=== PATIENT | female | born 1955 | race Caucasian/White ===

== ENCOUNTER 2016-07-30 12:25 | Emergency (ER) | payer OTHER ==
[~2016-07-30] VITALS: Ht 165.1 cm; Wt 68.0 kg
[~2016-07-30 12:25] MED LIST: ASPIRIN EC81 M1 PO; CHANTIX1 EACH; FLUOXETINE HCL20 M2; LANSOPRAZOLE30 M2 PO; LEVSIN0.125 M1 PO; LORAZEPAM2 M1 PO; NORCO 5-325 TA1 EACH PO; OLANZAPINE5 M2; OXYCODONE HCL30 M1 PO; PRAVASTATIN SOD40 M2 PO
--- NOTE | 2016-07-30 13:10 | ED GENERAL ADULT ---
History of Present Illness General Chief Complaint: Fall Stated Complaint: PER PT TRIPPED OVER DOG,NECK PAIN,FACE LAC Vital Signs & Intake/Output Vital Signs & Intake/Output Vital Signs Date Time Temp Pulse Resp B/P Pulse O2 O2 Flow FiO2 Ox Delivery Rate 07/30 1236 99.7 88 18 139/97 97 Room Air Allergies Coded Allergies: codeine (PANIC ATTACKS, ANXIETY 11/08/15) Reconcile Medications Aspirin (Ecotrin*) 81 MG TABLET.DR 4 TAB PO ONCE BACK WENT OUT (Reported) Fluoxetine HCl (Unknown Strength) CAPSULE (Unknown Dose) UNKNOWN (Reported) Hydrocodone/Acetaminophen ([place] 5-325 Tablet) 1 EACH TABLET 1-2 TAB PO Q6P PRN PAIN Hyoscyamine (Levsin) 0.125 MG TABLET 1-2 TAB PO Q6P PRN bladder spasms Lansoprazole 30 MG CAPSULE.DR 1 CAP PO DAILY GI (Reported) Lorazepam 2 MG TABLET 1 TAB PO TID PRN ANXIETY (Reported) Olanzapine (Unknown Strength) TABLET (Unknown Dose) UNKNOWN (Reported) Oxycodone HCl 30 MG TABLET 1 TAB PO 4XDP PRN PAIN (Reported) Pravastatin Sodium 40 MG TABLET 1 TAB PO DAILY CHOLESTEROL (Reported) Varenicline Tartrate (Chantix) (Unknown Strength) TAB.DS.PK (Unknown Dose) UNKNOWN (Reported) Triage Note: PT FELL LAST NIGHT AND HAS NECK AND FACE PAIN. NO RELIEF OF PAIN WITH ADVIL. PT HAS HAD NECK SURGERY "I'M CONCERNED ABOUT MY NECK" PT HAS LIMITED ROM TO NECK. PT TOOK ROXICODONE PRIOR TO ARRIVAL Past History Travel History Traveled to [place] past 21 day No Medical History Neurological: NONE EENT: NONE Cardiovascular: NONE Respiratory: NONE Gastrointestinal: NONE Hepatic: NONE Renal: NONE Musculoskeletal: CHRONIC NECK PAIN Psychiatric: anxiety Endocrine: NONE Blood Disorders: NONE Cancer(s): NONE Surgical History Surgical History: non-contributory Psychosocial History Who do you live with Spouse What is your primary language Greenlandic Departure Departure Condition: Stable Referrals: EMILIE LOGAN MD (PCP/Family) Departure Forms: Customer Survey General Discharge Information
--- NOTE | 2016-07-30 13:10 | ED HEAD/FACIAL INJ COMPLAINT ---
History of Present Illness General Chief Complaint: Fall Stated Complaint: PER PT TRIPPED OVER DOG,NECK PAIN,FACE LAC Source: patient, old records (q) Exam Limitations: no limitations Vital Signs & Intake/Output Vital Signs & Intake/Output Vital Signs Date Time Temp Pulse Resp B/P Pulse O2 O2 Flow FiO2 Ox Delivery Rate 07/30 1526 98.6 76 18 126/84 98 Room Air 07/30 1236 99.7 88 18 139/97 97 Room Air Allergies Coded Allergies: codeine (PANIC ATTACKS, ANXIETY 11/08/15) Reconcile Medications Fluoxetine HCl (Unknown Strength) CAPSULE (Unknown Dose) UNKNOWN (Reported) Lansoprazole 30 MG CAPSULE.DR 1 CAP PO DAILY GI (Reported) Olanzapine (Unknown Strength) TABLET (Unknown Dose) UNKNOWN (Reported) Pravastatin Sodium 40 MG TABLET 1 TAB PO DAILY CHOLESTEROL (Reported) Triage Note: PT FELL LAST NIGHT AND HAS NECK AND FACE PAIN. NO RELIEF OF PAIN WITH ADVIL. PT HAS HAD NECK SURGERY "I'M CONCERNED ABOUT MY NECK" PT HAS LIMITED ROM TO NECK. PT TOOK ROXICODONE PRIOR TO ARRIVAL Triage Nurses Notes Reviewed? yes Onset: Abrupt Severity: moderate Severity Numbers: 6 Location: frontal Method of Injury: fall Loss of Consciousness: dazed Associated Symptoms: neck pain HPI: 61-year-old female with history of chronic neck pain status post fusion for which she takes Roxicodone presents emergency room after she states she tripped over her dog last night hitting her face against the curb. The patient is unsure of LOC however states she has felt dazed since associated with a generalized headache and neck pain.. Patient denies any nausea or vomiting. She took one of her medications earlier today with only mild improvement of her mild aching pain nonradiating. No vision changes dental trauma epistaxis. She denies any back arm or leg pain No modifying factors or associated symptoms otherwise (AILYN RAWLS) Past History Travel History Traveled to [place] past 21 day No Medical History Any Pertinent Medical History? see below for history Neurological: NONE EENT: NONE Cardiovascular: NONE Respiratory: NONE Gastrointestinal: NONE Hepatic: NONE Renal: NONE Musculoskeletal: CHRONIC NECK PAIN Psychiatric: anxiety Endocrine: NONE Blood Disorders: NONE Cancer(s): NONE Surgical History Surgical History: non-contributory Psychosocial History Who do you live with Spouse What is your primary language Yi Family History Hx Contributory? No (AILYN RAWLS) Review of Systems Review of Systems Constitutional: Reports: see HPI. All Other Systems: Reviewed and Negative Comments Review of systems: See HPI, All other systems negative. Constitutional, no chills no fever, no malaise HEENT: No visual changes no sore throat no congestion, no ear pain Cardiovascular: No chest pain , no palpitation Skin, no rashes, no change in skin Respiratory: No dyspnea no cough no sputum GI: No nausea no vomiting, no diarrhea, Muscle skeletal: No joint pain, no joint swelling, back pain, neck pain, Neurologic: No numbness no confusion, headache Psych: No stress Heme/endocrine: No bruising no bleeding Immunology: No lymphadenopathy, (AILYN RAWLS) Physical Exam Physical Exam General Appearance: well developed/nourished, no apparent distress, alert, awake Cranial Nerves: normal hearing, normal speech, PERRL Comments: Well-developed well-nourished person in no acute distress HEENT: Normal EENT exam; PERRL, EOMI, no nystagmus. HEAD is atraumatic. moist mucous membranes. Superficial abrasion noted over the nasal bridge no laceration no dry blood no epistaxes no dental trauma Neck: Supple, bilateral paracervical muscle tenderness to palpation normal range of motion without pain or tenderness no ecchymosis or signs of trauma Back: Nontender, Full range of motion Cardiovascular: Regular rate and rhythms no murmurs rubs Respiratory: No respiratory distress. Patient speaking in full complete sentences. Breath sounds clear to auscultation bilaterally: NO W/R/R Abdomen: Soft, nontender Extremity: No edema, full range of motion of extremities, normal and equal pulses bilaterally, 5 out of 5 strength noted to bilateral upper and lower extremities Neuro: Alert oriented x3, motor sensory normal, cranial nerves II through XII grossly intact. There were no obvious focal neurologic abnormalities. Skin: No appreciable rash on exposed skin, skin is warm and dry. Psych: Mood and affect is normal, memory and judgment is normal. (AILYN RAWLS) Progress Differential Diagnosis: c-spine injury, facial fracture, globe injury, ICH, orbit fracture, skull fracture Plan of Care: Orders Procedure Date/time Status CT HEAD WO IV CONTRAST 07/[address] MAXILLOFACIAL W/O CON 07/[address] CERV SPINE WO IV CONTRAST 07/30 6645 Active Patient declining anything for pain when offered CAT scans ordered I discussed the patient at length all of her results she states she's had 4 previous injuries to her nose most recently in March, I discussed with her need for close follow-up with her primary care physician to continue taking her pain medication as prescribed, advised to return anytime sooner with any concerns I answered all of her questions she feels comfortable with this plan (ELEANOR TOMLIN,AILYN) Diagnostic Imaging: Viewed by Me: CT Scan. Discussed w/RAD: CT Scan. Radiology Impression: PATIENT: ASHLEY BAUMAN PRESENT AGE: 61 PATIENT ACCOUNT NO: [id number] : 59 LOCATION: [facility] ORDERING PHYSICIAN: AILYN TOMLIN SERVICE DATE: 07/30/16 EXAM TYPE: CAT - CT CERV SPINE WO IV CONTRAST; CT HEAD WO IV CONTRAST; CT MAXILLOFACIAL W/O CON EXAMINATION: CT HEAD WITHOUT CONTRAST CT CERVICAL SPINE WITHOUT CONTRAST CT of THE FACIAL BONES WITHOUT IV CONTRAST CLINICAL INFORMATION: 61-year-old female involved with trauma by falling. Possible loss of consciousness. Pain. History of spinal fusion. COMPARISON: CT of the cervical spine on July 2011 and July 2009. MR of the C-spine on 10/12/2011. TECHNIQUE: Contiguous axial imaging was performed from the skull base to vertex without intravenous administration of contrast. Multidetector helical imaging was performed through the cervical spine and the facial bones. Reformats were obtained at the acquisition workstation. In addition axial scans were obtained of the facial bones. DLP: 1632 mGy-cm. FINDINGS: Stripper Shovel Operator view demonstrates an anterior spinal fusion at the level C4-C5. HEAD: There is no evidence of acute intracranial hemorrhage or territorial infarction. No abnormal mass effect or midline shift is seen. Peck to white matter differentiation is well preserved. No extra-axial fluid collections are identified. The ventricles are normal in size. Brain parenchymal attenuation is normal. The osseous structures and soft tissues are normal. The mastoid air cells and visualized portions of the paranasal sinuses are well aerated. CERVICAL SPINE: No acute fracture or dislocation is identified in the cervical spine. The disc spaces are maintained. There is however evidence of an anterior cervical spinal fusion from the levels of C4-C5. Disc spacers are contained within the C4-C5, C5-C6, and C6-C7 interspaces. The atlantoaxial articulation is normally maintained. The paraspinal soft tissues are normal. The lung apices are clear. The thyroid is normal. There is mild facet arthritis throughout the C- spine. The facets on the right at C4-C5 have been resected. FACIAL BONES: There are minimally displaced fractures involving the nasal bones. Question age. Anterior maxillary spine is intact. The mandible and TMJs are normal. The bony orbits are normal. Zygomatic arches are intact. The paranasal sinuses are clear. The soft tissues are normal. There is no evidence of pathology involving the intraconal spaces of both orbits. IMPRESSION: 1. No acute intracranial pathology. 2. No evidence of acute cervical spine traumatic injury. C-spine 3. Nasal bone fractures, question age. DICTATED BY: MARIALUISA ORLANDO MD DATE/TIME DICTATED:07/30/161439 SEXTON HELPER:AGUSTIN DATE/TIME TRANSCRIBED:1439 CONFIDENTIAL, DO NOT COPY WITHOUT APPROPRIATE AUTHORIZATION. < Electronically signed in Other Vendor System> SIGNED BY: MARIALUISA ORLANDO MD 07/30/16 1516 (AILYN RAWLS) Departure Departure Disposition: HOME OR SELF CARE Condition: Stable Clinical Impression Primary Impression: Cervical strain Secondary Impressions: Facial contusion, Fall Referrals: DOREEN SHEPHERD,EMILIE Kinsey (PCP/Family) Additional Instructions: Rest, ice, Tylenol Motrin if needed. Continue taking your pain medication as prescribed follow up with her primary care physician this week and return with any concerns Departure Forms: Customer Survey General Discharge Information (AILYN RAWLS) PA/INSPECTOR PLUG SEAM Co-Sign Statement Statement: ED Attending supervision documentation- [] I saw and evaluated the patient. I have also reviewed all the pertinent lab results and diagnostic results. I agree with the findings and the plan of care as documented in the PA's/INSPECTOR PLUG SEAM's documentation. [X] I have reviewed the ED Record and agree with the PA's/INSPECTOR PLUG SEAM's documentation. [] Additions or exceptions (if any) to the PAs/INSPECTOR PLUG SEAM's note and plan are summarized below: [] (OUMAR WILSON DO
--- NOTE | 2016-07-30 15:16 | CT SCAN REPORT ---
EXAMINATION: CT HEAD WITHOUT CONTRAST CT CERVICAL SPINE WITHOUT CONTRAST CT of THE FACIAL BONES WITHOUT IV CONTRAST CLINICAL INFORMATION: 61-year-old female involved with trauma by falling. Possible loss of consciousness. Pain. History of spinal fusion. COMPARISON: CT of the cervical spine on July 2011 and July 2009. MR of the C-spine on 10/12/2011. TECHNIQUE: Contiguous axial imaging was performed from the skull base to vertex without intravenous administration of contrast. Multidetector helical imaging was performed through the cervical spine and the facial bones. Reformats were obtained at the acquisition workstation. In addition axial scans were obtained of the facial bones. DLP: 1632 mGy-cm. FINDINGS: Architectural Manager view demonstrates an anterior spinal fusion at the level C4-C5. HEAD: There is no evidence of acute intracranial hemorrhage or territorial infarction. No abnormal mass effect or midline shift is seen. Peck to white matter differentiation is well preserved. No extra-axial fluid collections are identified. The ventricles are normal in size. Brain parenchymal attenuation is normal. The osseous structures and soft tissues are normal. The mastoid air cells and visualized portions of the paranasal sinuses are well aerated. CERVICAL SPINE: No acute fracture or dislocation is identified in the cervical spine. The disc spaces are maintained. There is however evidence of an anterior cervical spinal fusion from the levels of C4-C5. Disc spacers are contained within the C4-C5, C5-C6, and C6-C7 interspaces. The atlantoaxial articulation is normally maintained. The paraspinal soft tissues are normal. The lung apices are clear. The thyroid is normal. There is mild facet arthritis throughout the C-spine. The facets on the right at C4-C5 have been resected. FACIAL BONES: There are minimally displaced fractures involving the nasal bones. Question age. Anterior maxillary spine is intact. The mandible and TMJs are normal. The bony orbits are normal. Zygomatic arches are intact. The paranasal sinuses are clear. The soft tissues are normal. There is no evidence of pathology involving the intraconal spaces of both orbits. IMPRESSION: 1. No acute intracranial pathology. 2. No evidence of acute cervical spine traumatic injury. C-spine 3. Nasal bone fractures, question age.
[2016-07-30 15:26] VITALS: BP 126/84
== END 2016-07-30 15:26 ==
LOC: ERH 12:25
DX: S16.1XXA Strain of muscle, fascia and tendon at neck level, initial encounter (principal); S00.83XA Contusion of other part of head, initial encounter; W01.0XXA Fall on same level from slipping, tripping and stumbling without subsequent striking against object, initial encounter; Y93.9 Activity, unspecified; Y92.480 Sidewalk as the place of occurrence of the external cause